=== PATIENT | male | born 2005 | race Caucasian/White ===

== ENCOUNTER 2024-10-22 10:46 | Emergency (ER) | payer OTHER, SELFPAY ==
[2024-10-22 11:16] VITALS: BP 118/59; PULSE 66; RESP 20; TEMP 37.1; O2SAT 100
--- NOTE | 2024-10-22 12:22 | ED.GENADULT ---
HPI - General Adult General Chief complaint: Skin/Abscess/Foreign Body Stated complaint: Insect Bite Source: patient and family Mode of arrival: ambulatory Limitations: no limitations History of Present Illness HPI narrative: Patient presents for evaluation of a wound to right lower extremity. Symptom onset about 36 hrs ago. Family is concerned that he was bit by a spider. He initially had a blistered lesion which erupted. He now has residual redness. He denies any fever, chills, nausea, vomiting, purulence from the affected area. He is not diabetic. He has been putting on triple antibiotic ointment. Related Data Allergies Allergy/AdvReac Type Severity Reaction Status Date / Time No Known Allergies Allergy Verified 10/22/24 11:25 Review of Systems Review of Systems: CONSTITUTIONAL: Denies fever, chills, or sweats. EYES: Denies visual changes, redness, or discharge. ENT: Denies rhinorrhea, congestion, sore throat, or otalgia. CARDIOVASCULAR: Denies chest pain, palpitations, or edema. RESPIRATORY: Denies cough or dyspnea. GASTROINTESTINAL: Denies abdominal pain, nausea, vomiting, or diarrhea. GENITOURINARY: Denies dysuria or hematuria. SKIN: Reports recent blistered lesion to right lower leg that has since erupted. Reports residual redness in area of previous blister MUSCULOSKELETAL: Denies back pain, joint pain, or myalgia. NEUROLOGIC: Denies headache, numbness, dizziness, or weakness. PSYCHIATRIC: Denies anxiety or depression. [facility] Past Medical History Medical History No pertinent past medical history Surgical History Surgical History No pertinent past surgical history Family History Family History Mother Family history non-contributory Social History Social History Smoking status: Never smoker Substance use: never Living arrangements: with family Gender identity (if verbalized by the patient): Male Spiritual care concerns: No Exam Narrative: GENERAL: Well-appearing, well-nourished, and in no acute distress. HEAD: Normocephalic, atraumatic. EYES: PERRLA and EOMI. ENT: Nares clear, no rhinorrhea or epistaxis. Mucous membranes moist. Oropharynx without tonsillar hypertrophy exudate or other lesions. Bilateral TMs pearly gaines nonbulging NECK: Supple. No adenopathy or masses. No carotid bruits or JVD CHEST: Clear to auscultation. No respiratory distress. No wheezes rales or rhonchi HEART: Regular rate and rhythm. No murmur heard. Normal peripheral pulses. ABDOMEN: Soft, nontender, nondistended, normal active bowel sounds. EXTREMITIES: Normal range of motion. No edema. SKIN: There is an annular area of erythema to the posterolateral aspect of right lower leg just beneath the knee which is 2.5 x 1.5 cm in size NEURO: No focal deficits. Alert and oriented x3. PSYCH: Normal mood and affect. Course Course Emergency Course: This is a 18-year-old male who presented for evaluation of redness to the right lower leg with concerns about her recent potential spider bite. Will treat with doxycycline. Advised on wound care. Follow-up with primary provider. Go to the ER for worsening symptoms. Patient in agreement with plan of care. Level of Care: Express Care Visit Vital Signs Vital signs: Vital Signs Temperature 37.1 C 10/22/24 11:16 Pulse Rate 66 10/22/24 11:16 Respiratory Rate 20 10/22/24 11:16 Blood Pressure 118/59 L 10/22/24 11:16 Pulse Oximetry 100 10/22/24 11:16 Oxygen Delivery Room Air 10/22/24 11:16 Temperature 37.1 C 10/22/24 11:16 Pulse Rate 66 10/22/24 11:16 Respiratory Rate 20 10/22/24 11:16 Blood Pressure 118/59 L 10/22/24 11:16 Pulse Oximetry 100 10/22/24 11:16 Oxygen Delivery Room Air 10/22/24 11:16 Medical Decision Making Vital Signs Vital Signs: Vital Signs Temperature 37.1 C 10/22/24 11:16 Pulse Rate 66 10/22/24 11:16 Respiratory Rate 20 10/22/24 11:16 Blood Pressure 118/59 L 10/22/24 11:16 Pulse Oximetry 100 10/22/24 11:16 Oxygen Delivery Room Air 10/22/24 11:16 Temperature 37.1 C 10/22/24 11:16 Pulse Rate 66 10/22/24 11:16 Respiratory Rate 20 10/22/24 11:16 Blood Pressure 118/59 L 10/22/24 11:16 Pulse Oximetry 100 10/22/24 11:16 Oxygen Delivery Room Air 10/22/24 11:16 Discharge Plan Discharge Clinical Impression: Accidental spider bite Patient Disposition: Home, Self-Care Condition: Stable Instructions: Antibiotic Form, Insect Bite or Sting (ED) Patient Language: [place] Citizen Prescriptions: New doxycycline hyclate 100 mg tablet 100 mg PO BID Qty: 20 0RF Follow-up/Referrals: Gary,Gay Cisneros APN [Primary Care Provider] - Time of Disposition: 12:22
== END 2024-10-22 12:24 | disposition home or self-care (01) ==
PROVIDERS: Emergency Provider Nurse Practitioner; PCP Nurse Practitioner Family
DX: S80.861A Insect bite (nonvenomous), right lower leg, initial encounter (principal); W57.XXXA Bitten or stung by nonvenomous insect and other nonvenomous arthropods, initial encounter
CPT/HCPCS: 99203; G0463